=== PATIENT | female | born 1990 ===

== ENCOUNTER 2021-03-16 02:09 | Inpatient (IN) ==
[~2021-03-16 02:09] MED LIST: Famotidine 20 MG/2 ML VIAL IVP PRN; Metoclopramide 10 MG/2 ML VIAL IVP PRN; Naloxone 0.4 MG/ML INJ IVP PRN; Ringers Solution, Lactated 1,000 ML ONE
[2021-03-16 02:22] LABS: Basophils % 0.3 %; Eosinophils # 0.2 K/mcL (0.0-0.6); Eosinophils % 1.3 %; Hematocrit 34.9 % (35.3-44.9); Hemoglobin 11.3 g/dL (11.5-15.4); Immature Granulocytes % 1.3 % (0-4); Lymphocytes # 2.1 K/mcL (0.6-4.6); Lymphocytes % 15.5 %; Mean Corpuscular HGB Conc 32.4 g/dL (31.6-35.5); Mean Corpuscular Hemoglobin 29.6 pg (28.0-33.3); Mean Corpuscular Volume 91.4 fL (83.0-100.0); Mean Platelet Volume 11.5 fL (9.4-12.4); Monocytes # 1.6 K/mcL (0.0-1.3); Monocytes % 11.8 %; Neutrophils # 9.4 K/mcL (1.6-8.9); Platelet Count 215 K/mcL (140-400); Red Blood Count 3.82 M/mcL (3.82-4.97); Red Cell Distribution Width 12.4 % (11.5-14.5); Segmented Neutrophils % 69.8 %; White Blood Count 13.5 K/mcL (4.3-11.1)
[2021-03-16 02:30] LABS: Amphetamine Screen,Urine Negative ng/mL (Cutoff=1000); Barbiturate Screen,Urine Negative ng/mL (Cutoff=200); Benzodiazepines Screen,Urine Negative ng/mL (Cutoff=200); Cannabinoid Screen,Urine Negative ng/mL (Cutoff = 50); Cocaine Screen,Urine Negative ng/mL (Cutoff= 300); Opiate Screen,Urine Negative ng/mL (Cutoff=300); Phencyclidine Screen,Urine Negative ng/mL (Cutoff=25)
[2021-03-16] MEDS ORDERED: Ringers Solution, Lactated 1,000 ML ONE (02:33)
[2021-03-16] MEDS ORDERED: EPHEDrine 50 MG/ML VIAL IVP PRN (02:39)
[2021-03-16] MEDS ORDERED: Epidural Premix (fent/bupiv) 110 ML EP SCH (02:45)
[2021-03-16 02:56] LABS: Influenza A PCR Negative (Negative); Influenza B PCR Negative (Negative); Resp. Syncytial Virus PCR Negative (Negative)
[2021-03-16 02:59] LABS: SARS-CoV-2 by PCR (In House) Negative (Negative)
[2021-03-16] MEDS ORDERED: Oxytocin 20 units/ LR 1000 mL 20 UNIT/1,000 ML BAG IVC ONE (04:16)
[2021-03-16] MEDS ORDERED: Oxytocin 20 units/ LR 1000 mL 20 UNIT/1,000 ML BAG IVC SCH (05:18)
[2021-03-16] MEDS ORDERED: Measles/Mumps/Rubella Vacc 0.5 ML VIAL SQ PRN (05:18)
[2021-03-16] MEDS ORDERED: Lanolin 7 G OINT...G. TP PRN (05:18)
[2021-03-16] MEDS ORDERED: Ondansetron ODT 4 MG TAB.RAPDIS SL PRN (05:18)
[2021-03-16] MEDS ORDERED: Benzocaine/Menthol 56 GM AEROSOL SPRAY TP PRN (05:18)
[2021-03-16] MEDS ORDERED: Rho Immune Globulin 1,500 UNIT SYRINGE IM PRN (05:18)
[2021-03-16] MEDS: Ibuprofen 600 MG TABLET PO SCH ×3 (08:35→23:46)
[2021-03-16] MEDS ORDERED: Prenatal Vit/FA 1 EACH TABLET PO SCH (09:00)
[2021-03-16] MEDS: Acetaminophen 325 MG TABLET PO SCH ×4 (09:58→23:46)
[2021-03-17 07:24] VITALS: PULSE 78
[2021-03-17 07:54] VITALS: BP 121/81; TEMP 97.7; O2SAT 99
[2021-03-17] MEDS: Acetaminophen 325 MG TABLET PO SCH (11:12)
[2021-03-17] MEDS: Ibuprofen 600 MG TABLET PO SCH (11:12)
== END 2021-03-17 11:18 | disposition home or self-care (01) | DRG 560 ==
LOC: 1NENULAB → 1NENUOBS 07:46
PROVIDERS: ADMIT Obstetrics & Gynecology; ATTEND Obstetrics & Gynecology